=== PATIENT | female | born 1950 | race Caucasian/White ===

== ENCOUNTER → 2016-10-07 | Outpatient (CLI) | payer MEDICARE, OTHER ==
[~2016-10-07] MED LIST: FOLIC ACID; SYNTHROID0.05 MG; ZOFRAN
--- NOTE | ~2016-10-07 | MY11 ---
[facility] A Service of [facility] RADIOLOGY TEXT RESULTS PATIENT: KATHLEEN GIBSON LOCATION: [facility] : 48 UNIT #: [id number] AGE: [address]: KATIA DELATORRE MD SEX: F ORDER DR: [id number] [place] [id number] O MR#: [id number] Acc #: [id number] NAME: KATHLEEN GIBSON : 1950 SEX: F STUDY DATE/TIME: 10/07/2016 10:34 UNIT: [facility] ROOM: STUDY DESCRIPTION: MY Mammogram Screening Dig [place] Attending Physician: Veronica Delatorre M.D. Referring Physician: Veronica Delatorre M.D. Ordering Physician: Veronica Delatorre M.D. Primary Care Physician: Veronica Delatorre M.D. MEDICAL IMAGING REPORT This report is preliminary unless electronic signature is present. EXAM Digital screening mammogram, 10/07/2016; [facility]. HISTORY 65-year-old woman, positive family history, aunt. Annual screen. COMPARISON Outside mammogram now available, date 05/27/2014. FINDINGS Digital imaging of each breast was completed utilizing a two-view examination of each breast in craniocaudal and mediolateral-oblique projections. Review and interpretation of digital mammograms include a second review in conjunction with FDA-approved CAD device. There is a normal parenchymal presentation bilaterally consistent with the patient's age. There are no breast masses imaged and no parenchymal asymmetry is visualized. There are no suspicious microcalcifications and I see no focal architectural disturbance. IMPRESSION Negative screening digital mammogram. One-year followup recommended. Patients over the age of 40 are entered into a reminder system with target due date for the next mammogram. A result letter will also be sent to the patient. BIRADS: 1 Negative. ADDENDUM Breast parenchyma is predominately fatty replaced. [facility] A Service of [facility] RADIOLOGY TEXT RESULTS PATIENT: KATHLEEN GIBSON LOCATION: [facility] : 48 UNIT #: [id number] AGE: [address]: KATIA DELATORRE MD SEX: F ORDER DR: Dictated by... Rashel Seymour M.D. THIS IS AN ELECTRONICALLY VERIFIED REPORT Rashel Seymour M.D. at 10/17/2016 8:06 AM RISHABH/mayte TD: 10/14/2016 20:53 JOB #: [id number] MEDICAL IMAGING REPORT Page 1 of 1
== END | disposition home or self-care (01) ==
LOC: SMAM 07:29
DX: Z12.31 Encounter for screening mammogram for malignant neoplasm of breast (principal); Z80.3 Family history of malignant neoplasm of breast
CPT/HCPCS: G0202